=== PATIENT | female | born 1990 | race Caucasian/White ===

== ENCOUNTER 2017-06-29 21:45 | Emergency (ER) | payer MEDICAID ==
[2013-08-08 12:12] VITALS: BMI 27.8
== END 2017-06-29 23:54 | disposition home or self-care (01) ==
LOC: D.ER 21:45
DX: K05.30 Chronic periodontitis, unspecified (principal); M26.603 Bilateral temporomandibular joint disorder, unspecified; I10 Essential (primary) hypertension

== ENCOUNTER 2017-08-01 14:52 | Emergency (ER) | payer MEDICAID ==
[2013-08-08 12:12] VITALS: BMI 27.8
== END 2017-08-01 20:43 | disposition home or self-care (01) ==
LOC: D.ER 14:52
DX: M26.623 Arthralgia of bilateral temporomandibular joint (principal)

== ENCOUNTER 2017-10-07 18:36 | Emergency (ER) | payer SELFPAY ==
[2013-08-08 12:12] VITALS: BMI 27.8
== END 2017-10-07 21:45 | disposition home or self-care (01) ==
LOC: D.ER 18:36
DX: K02.9 Dental caries, unspecified (principal); K08.89 Other specified disorders of teeth and supporting structures; K05.10 Chronic gingivitis, plaque induced; F17.200 Nicotine dependence, unspecified, uncomplicated

== ENCOUNTER 2017-11-25 10:23 | Emergency (ER) | payer MEDICAID | END 2017-11-25 14:15 | disposition home or self-care (01) | LOC: D.ER 10:23 | DX: K04.7 Periapical abscess without sinus (principal); K08.89 Other specified disorders of teeth and supporting structures ==

== ENCOUNTER 2018-02-23 18:19 | Emergency (ER) | payer SELFPAY ==
[2013-08-08 12:12] VITALS: BMI 27.8
== END 2018-02-23 20:26 | disposition home or self-care (01) ==
LOC: D.ER 18:19
DX: K02.9 Dental caries, unspecified (principal); K08.89 Other specified disorders of teeth and supporting structures; S02.5XXA Fracture of tooth (traumatic), initial encounter for closed fracture; X58.XXXA Exposure to other specified factors, initial encounter; Y93.9 Activity, unspecified; Y92.9 Unspecified place or not applicable

== ENCOUNTER 2019-09-28 13:15 | Emergency (ER) | payer SELFPAY ==
[~2019-09-28] VITALS: Ht 167.6 cm; Wt 73.6 kg
[2019-09-28 13:40] VITALS: Ht 167.6 cm; Wt 73.6 kg
[2019-09-28] MEDS ORDERED: ORAL ANALGESIC9 GM TOPICAL (13:57)
[2019-09-28] MEDS ORDERED: IBUPROFEN800 MG PO (13:57)
[2019-09-28] MEDS ORDERED: PENICILLIN V P500 MG PO (13:57)
[2019-09-28 14:26] VITALS: BP 135/93
== END 2019-09-28 14:27 | disposition home or self-care (01) ==
LOC: D.ER 13:15
DX: K02.9 Dental caries, unspecified (principal); K08.89 Other specified disorders of teeth and supporting structures